=== PATIENT | male | born 1980 | race Caucasian/White ===

== ENCOUNTER 2016-11-03 10:09 | Emergency (ER) | payer SELFPAY ==
[2016-11-03 10:58] VITALS: BP 129/85
[2016-11-03] MEDS ORDERED: TORADOL IM ONE (12:17)
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
== END 2016-11-03 12:39 | disposition home or self-care (01) ==
LOC: ED 10:09
DX: M54.9 Dorsalgia, unspecified (principal); G89.29 Other chronic pain; E11.9 Type 2 diabetes mellitus without complications; Z79.4 Long term (current) use of insulin
CPT/HCPCS: 96372; 99282; J1885